=== PATIENT | female | born 1975 | race Caucasian/White ===

== ENCOUNTER 2017-02-05 23:39 | Emergency (ER) | payer OTHER ==
[~2017-02-05] VITALS: Ht 167.6 cm; Wt 79.4 kg
[2017-02-05 23:42] VITALS: BP 121/72
--- NOTE | 2017-02-06 | NUR ---
41 YO MALE BB SELF. PT IS ALERT X 3, C/O CHEST DISCOMFORT ALL DAY. PT AMBULATED TO ER BED, SKIN WARM AND DRY, RR EVEN AND UNLABORED. AWAITING ORDERS FORM PROVIDER
[2017-02-06] MEDS ORDERED: LORAZEPAM 1 MG TABLET ONE (00:04)
[2017-02-06] MEDS ORDERED: IBUPROFEN 400 MG TABLET ONE (00:04)
[2017-02-06] MEDS ORDERED: LORAZEPAM 1 MG TABLET PO ONE (00:30)
[2017-02-06] MEDS ORDERED: IBUPROFEN 400 MG TABLET PO ONE (00:30)
== END 2017-02-06 01:10 | disposition home or self-care (01) ==
LOC: ER 23:43
DX: F41.9 Anxiety disorder, unspecified (principal); Z85.819 Personal history of malignant neoplasm of unspecified site of lip, oral cavity, and pharynx; Z85.850 Personal history of malignant neoplasm of thyroid
CPT/HCPCS: 71010; 93005; 99284; A4606; Z7610

== ENCOUNTER 2017-04-17 17:45 | Emergency (ER) | payer OTHER ==
[~2017-04-17] VITALS: Ht 167.6 cm; Wt 86.2 kg
--- NOTE | 2017-04-17 17:48 | NUR ---
PT BIB [facility] C/O BILAT LEG PAIN SINCE X 3 WEEKS, WORSENING TODAY, NON TRAUMATIC. PLACED ON MONITOR. VSS. AWAITING MD ORDER
[2017-04-17] MEDS ORDERED: LORAZEPAM 1 MG TABLET ONE (18:46)
[2017-04-17] MEDS ORDERED: IV NS 0.9% 1,000 ML ONE (18:46)
[2017-04-17] MEDS ORDERED: IV SET PRIMARY PUMP SET 1 EA INFUS.SET MC ONE (18:46)
[2017-04-17] MEDS ORDERED: KETOROLAC TROMETHAMINE INJ 30 MG/ML VIAL ONE (18:46)
[2017-04-17 18:50] LABS: BASOPHILS % (AUTO) 0.3 % (0.0-2.0); EOSINOPHILS # (AUTO) 0.2 /CMM (0.0-0.7); EOSINOPHILS % (AUTO) 2.1 % (0.0-6.0); HEMATOCRIT 37 % (33-45); HEMOGLOBIN 12.6 g/dL (11.5-14.8); LYMPHOCYTES # (AUTO) 2.4 /CMM (0.8-4.8); LYMPHOCYTES % (AUTO) 30.5 % (20.0-44.0); MEAN CORPUSCULAR HEMOGLOBIN 29 PG (26.0-33.0); MEAN CORPUSCULAR HGB CONC 34 g/dl (31.0-36.0); MEAN CORPUSCULAR VOLUME 87 fL (82-100); MONOCYTES # (AUTO) 0.4 /CMM (0.1-1.30); MONOCYTES % (AUTO) 5.1 % (2.0-12.0); PLATELET COUNT (AUTO) 299 /CMM (150-450); RDW COEFFICIENT OF VARIATION 13.4 (11.5-15.0)
--- NOTE | 2017-04-17 18:55 | NUR ---
MFT AT BEDSIDE
[2017-04-17 19:00] LABS: CALCIUM, SERUM 8.1 mg/dL (8.5-10.1); CREATININE 0.9 mg/dL (0.6-1.3); POTASSIUM 3.8 mmol/L (3.5-5.1)
[2017-04-17] MEDS ORDERED: KETOROLAC TROMETHAMINE INJ 30 MG/ML VIAL IV ONE (19:00)
[2017-04-17] MEDS ORDERED: LORAZEPAM 1 MG TABLET PO ONE (19:00)
[2017-04-17] MEDS ORDERED: IV NS 0.9% 1,000 ML BAG IV ONE (19:00)
--- NOTE | 2017-04-17 19:21 | NUR ---
REPORT GIVEN TO MARY FOR ISMAEL
[2017-04-17 21:03] VITALS: BP 119/73
--- NOTE | 2017-04-17 21:04 | NUR ---
Patient discharged to home in stable condition. Written and verbal after care instructions given. Patient verbalizes understanding of instruction.IV removed. Catheter intact and site benign. Pressure and 4x4 applied to site. No bleeding noted. PT ambulatory with a steady gait VITAL SIGNS WITHIN NORMAL LIMITS.
== END 2017-04-17 21:05 | disposition home or self-care (01) ==
LOC: ER 17:46
DX: M79.605 Pain in left leg (principal); M79.604 Pain in right leg; E03.9 Hypothyroidism, unspecified; F41.9 Anxiety disorder, unspecified
CPT/HCPCS: 36415; 71010; 73551; 73552; 80048; 82550; 84443; 85025; 85378; 96361; 96374; 99285; J1885; J7030; A4606